=== PATIENT | male | born 1965 | race Caucasian/White ===

== ENCOUNTER 2024-06-16 08:31 | Emergency (ER) | payer BC, SELFPAY ==
[2024-06-16 08:33] VITALS: BP 178/100
--- NOTE | 2024-06-16 09:06 | ED.GENMED ---
History of Present Illness
General
Chief Complaint: Back Pain
Source: patient
Exam Limitations: none
Time Seen by Provider: 06/16/24 09:03
Nursing documentation reviewed up to this point in time: agreed with
History of Present Illness
History of Present Illness:
Patient is a 58-year-old male presents to the ER for evaluation of back pain. Patient reports for the past 1-2 weeks he has had some discomfort in his low back. He reports he did a long 20-hour drive to [place] and felt some discomfort during that
time and also stuck on a plane for hours. He reports this week on Monday and Monday he started to feel more discomfort in his left lower back which has become increasingly worse. He reports he is pulled his back out before and this seems very
similar. He had hydrocodone/acetaminophen at home along with Flexeril however that has not been working. In addition he has also been taking Aleve.
He denies any radiation of pain. Denies any numbness tingling weakness to lower extremities. He denies any bowel or bladder incontinence. He reports pain is in the left lower back region worse with movement.
Past History
Past History
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
Social History
Tobacco: Non-smoker
Personal:
Living: with family
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
Review of Systems
Review of Systems
Allergies reviewed?: Yes
All Other Systems: ROS reviewed and negative except as documented in HPI and ROS
Constitutional: Reports no symptoms; Denies fever
Cardiac: Reports no symptoms
ABD/GI: Reports no symptoms
: Reports no symptoms; Denies incontinence
Musculoskeletal: Reports back pain
Skin: Reports no symptoms
Neurological: Reports no symptoms
Phy Exam
General Physical Exam
General Presentation: no apparent distress
General age: appears stated age
General Skin: warm and dry
General Habitus: normal
General Mental: alert
General Hydration: appears well hydrated
Cardiovascular Exam
Cardiovascular Exam: regular rate/rhythm, no murmur and normal peripheral pulses
Pulmonary Exam
Pulmonary Exam: lungs clear and no respiratory distress
Neurological Exam
Neurological Exam: alert, oriented x3 and other (Intact sensation to bilateral lower extremities normal dorsiflexion plantarflexion normal bilateral patellar reflexes)
Musculoskeletal Exam
Musculoskeletal Exam: other (+ tenderness to left lower paralumbar region nml inspection )
Skin Exam
Skin Exam: normal color and warm/dry
Psychiatric Exam
Psychiatric Exam: normal mood/affect
Course
Orders/Labs/Results
Orders:
Orders
06/16/24 09:15
diazePAM [Valium Injection] 5 mg IM NOW STA
06/16/24 09:17
Ketorolac [Toradol] 30 mg IM NOW STA
06/16/24 09:19
Lidocaine [Lidocaine 4% Patch] 1 patch TOPICAL NOW STA
Apply Lidocaine patch(s) to:: left lower back
06/16/24 11:01
HYDROmorphone [Dilaudid] 1 mg IM NOW STA
Vital Signs
Initial and Last Documented VS:
Initial Vital Signs
Temp Pulse Resp BP Pulse Ox
98.4 F 72 18 178/100 98
06/16/24 08:33 06/16/24 08:33 06/16/24 08:33 06/16/24 08:33 06/16/24 08:33
Last Documented Vital Signs
Temp Pulse Resp BP Pulse Ox
98.4 F 72 18 142/86 94
06/16/24 08:33 06/16/24 08:33 06/16/24 08:33 06/16/24 11:28 06/16/24 11:30
MDM/Problems Addressed
Differential Diagnosis Includes:
not limited to: lumbar sprain/strain/muscle spasm
MDM/Problems Addressed:
Symptoms are consistent with muscle strain, spasm. Patient has had relief with Valium Toradol and did receive 1 injection of pain medication here in the ER he is ambulatory no neurological deficits no radiation of pain. Patient has a prescription
for hydrocodone/acetaminophen at home for arthritis he has tried this but this is not working for his back pain. Mild patient hold off on taking this medication as I did send a prescription for Valium to his pharmacy. I did educate patient and
on the risks of taking these medications together. He was instructed to stop taking his narcotic medicine and only Valium as needed with anti-inflammatory
*Pulse Oximetry
Patient hypoxic: no
*Critical Care Note
Total Time (30-74mins, 75-104mins- exclusive of procedures): Not Applicable
ED Attending Note
-
Portions of this chart may have been created with voice recognition software.� Occasional wrong word or��sound alike� substitutions may have occurred due to the inherent limitations of voice recognition software.
Discharge Plan
Departure
Patient Disposition: Home (Routine Discharge)
Date of Disposition: 06/16/24
Time of Disposition: 11:52
Patient with high blood pressure during this ER visit?: Yes
Condition: Fair
Covid-19: Not Applicable
Discharge Problem:
Muscle spasm
Instructions: Low Back Pain (DC), Muscle Spasm ED, BLOOD PRESSURE
Prescriptions:
New
diazepam [Valium] 5 mg tablet
5 mg PO TID PRN (Reason: muscle spasm) Qty: 10 0RF
No Action
prednisone 20 MG tablet
40 mg PO DAILY Qty: 8 0RF
Referrals:
Niraj Baldwin DO [Family Provider] -
Activity Restrictions/Additional Instructions:
As discussed, warm moist heat to affected area several times a day
Either Ibuprofen or Alleve as directed.
A prescription was sent to your pharmacy for Valium, take as directed .
No driving or drinking alcohol while on this medication. In addition do not take your narcotic medicine while taking this medicine.
Avoid lifting twisting turning bending however you may walk. Avoid prolonged positions.
Follow-up with family doctor in next several days for re-evaluation and return if any worsening of symptoms
Interventions
Interventions:
*Risk Screen - Suicide Last Done: 06/16/24 08:33
*General Assessment Last Done: 06/16/24 08:33
*Neglect/Abuse Screening Last Done: 06/16/24 08:33
ED- Fall Risk Assessment Last Done: 06/16/24 09:17
*ED COVID-19 Vaccine History Last Done: 06/16/24 09:16
ED-Musculoskeletal Assessment Last Done: 06/16/24 09:17
Discharge Date and Time
Print Language: MONTENEGRIN
[2024-06-16 09:16] VITALS: BMI 30.1
[2024-06-16] MEDS: VALIUM INJECTION 5 MG IM (09:21)
[2024-06-16] MEDS: TORADOL 30 MG IM (09:21)
[2024-06-16] MEDS: LIDOCAINE 4% PATCH 1 PATCH TOPICAL (09:23)
[2024-06-16] MEDS: DILAUDID 1 MG IM (11:25)
[2024-06-16 11:28] VITALS: BP 142/86
[2024-06-16 12:13] VITALS: BP 155/91
== END 2024-06-16 12:14 | disposition home or self-care (01) ==
LOC: EMR 08:31
PROVIDERS: EMERGENCY PHYSICIAN Emergency Medicine; FAMILY PHYSICIAN Family Medicine
DX: M62.838 Other muscle spasm (principal)
CPT/HCPCS: 99282; 96372

== ENCOUNTER 2024-06-17 06:56 | Emergency (ER) | payer BC, SELFPAY ==
[2024-06-17 06:57] VITALS: BP 184/105
[2024-06-17 07:23] VITALS: BMI 30.1
--- NOTE | 2024-06-17 07:32 | ED.GENMED ---
History of Present Illness
General
Chief Complaint: Back Pain
Time Seen by Provider: 06/17/24 07:32
History of Present Illness
History of Present Illness:
TIME OF INITIAL ENCOUNTER: 7:45 AM
HPI: The patient presents with nontraumatic pain at the back/hip. He was seen here yesterday related the pain in the back for the past 1 to 2 weeks�he has been taking Aleve and Flexeril which has not helped. He has Vicodin at home but has not
taken it. When he was seen here yesterday he was given a shot of Toradol, shot of Valium, and shot of Dilaudid. A prescription was sent for Valium to his pharmacy yesterday. Today however, the pain is more localized over the greater trochanteric
region. His brought up the possibility of bursitis.
EXAM:
GENERAL: Well appearing but in mild distress
HEENT: Moist oral mucosa
NEUROLOGIC: Excellent strength all extremities, no obvious coordination deficits
BACK: Negative straight leg raise on the left
PSYCHIATRIC: Appropriate mental status, normal insight and judgement
EXTREMITIES: There is some vague discomfort to palpation over the left greater trochanter, no edema, moves all extremities equally, no pain with passive range of motion into rotation at the left hip
SKIN: No rash, no lesions
NUMBER AND COMPLEXITY OF PROBLEMS ADDRESSED AT THE ENCOUNTER
� Chronic conditions affecting care: Had surgery on the aortic arch
� Acute Exacerbation and/or Progression of Chronic Illness: This is an acute problem
� Differential Diagnosis includes: Trochanteric bursitis, osteoarthritis, sciatica
AMOUNT AND/OR COMPLEXITY OF DATA TO BE REVIEWED AND ANALYZED
� I performed an independent evaluation of and my interpretation is:
EKG:
CT:
X-rays: X-rays personally reviewed and agree with radiologist interpretation that there is bilateral mild degenerative changes
Laboratory Studies:
Other:
� Review of other/old records: I reviewed the notes from yesterday's ED visit as summarized in the HPI
� Clinical information was obtained by an independent historian: I spoke to the at bedside
� Prescriptions/Medications Considered but not given:
� Further testing considered but not performed:
RISK OF COMPLICATIONS AND/OR MORBIDITY OR MORTALITY OF PATIENT MANAGEMENT
� Social determinants of health affecting care: Lives at home
� Discussion with other providers:
� Escalation of care including admission/observation vs risk of discharge considered: Based on location of pain, I favor more of a diagnosis of greater trochanteric bursitis as opposed to sciatica/back etiology. Will start
anti-inflammatory medicines including steroids.
ANY OTHER UPDATES:
9:05 AM: The patient was given Toradol and steroids. X-rays are relatively unremarkable.
9:15 AM: I reassessed the patient and he appears fairly comfortable. Blood pressure noted to be elevated and it appears he is noncompliant with his blood pressure medication. Will add steroids for short course as further treatment of trochanteric
bursitis. He says he could follow-up with Jennifer. We also talked about trying to use an [id number] lidocaine patch.
Past History
Past History
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
Social History
Tobacco: Non-smoker
Personal:
Living: with family
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
Phy Exam
Physical Exam
Physical Exam:
See HPI
Course
Orders/Labs/Results
Orders:
Orders
06/17/24 07:56
Ketorolac [Toradol] 30 mg IM NOW STA
Prednisone [Deltasone] 50 mg PO NOW STA
CR Hip - LT w/wo Pel 2-3 Vw* Urgent
Comment:
Reason For Exam: severe pain L lateral hip
Include a pelvis x-ray?: Yes
CR Lumbar Spine Comp Min 4 Vw* Urgent
Comment:
Reason For Exam: pain
Vital Signs
Initial and Last Documented VS:
Initial Vital Signs
Temp Pulse Resp BP Pulse Ox
98 F 65 16 184/105 98
06/17/24 06:57 06/17/24 06:57 06/17/24 06:57 06/17/24 06:57 06/17/24 06:57
Last Documented Vital Signs
Temp Pulse Resp BP Pulse Ox
98 F 65 16 161/94 98
06/17/24 06:57 06/17/24 06:57 06/17/24 06:57 06/17/24 08:20 06/17/24 06:57
*Critical Care Note
Total Time (30-74mins, 75-104mins- exclusive of procedures): Not Applicable
ED Attending Note
-
Portions of this chart may have been created with voice recognition software.� Occasional wrong word or��sound alike� substitutions may have occurred due to the inherent limitations of voice recognition software.
Discharge Plan
Departure
Patient Disposition: Home (Routine Discharge)
Date of Disposition: 06/17/24
Time of Disposition: 09:13
Patient with high blood pressure during this ER visit?: Yes
Discharge Problem:
Bursitis, trochanteric
Instructions: Bursitis (DC), BLOOD PRESSURE
Prescriptions:
New
prednisone 50 mg tablet
50 mg PO DAILY Qty: 4 0RF
No Action
diazepam [Valium] 5 mg tablet
5 mg PO TID PRN (Reason: muscle spasm) Qty: 10 0RF
A Little Brown Pill For Bp
1 tab PO DAILY
Patient Comments:
' when I remember'
naproxen sodium [Aleve] 220 mg Capsule
220 mg PO PRN PRN (Reason: pain)
Referrals:
Niraj Baldwin DO [Family Provider] -
Activity Restrictions/Additional Instructions:
X-ray showed mild degenerative changes to both hips but otherwise was relatively unremarkable. I suspect your symptoms are more related to trochanteric bursitis. I recommend you follow-up with Jennifer. Call their office for follow-up. I am
sending a prescription for prednisone to your pharmacy.
Interventions
Interventions:
*Risk Screen - Suicide Last Done: 06/17/24 07:00
*Neglect/Abuse Screening Last Done: 06/17/24 07:00
ED- Fall Risk Assessment Last Done: 06/17/24 07:31
*ED COVID-19 Vaccine History Last Done: 06/17/24 07:21
ED-Musculoskeletal Assessment Last Done: 06/17/24 07:31
Discharge Date and Time
Print Language: ANGOLAN
[2024-06-17] MEDS: TORADOL 30 MG IM (08:08)
[2024-06-17] MEDS: DELTASONE 50 MG PO (08:08)
[2024-06-17 08:20] VITALS: BP 161/94
== END 2024-06-17 09:24 | disposition home or self-care (01) ==
LOC: EMR 06:56
PROVIDERS: EMERGENCY PHYSICIAN Emergency Medicine; FAMILY PHYSICIAN Family Medicine
DX: M70.62 Trochanteric bursitis, left hip (principal); I10 Essential (primary) hypertension; Z91.148 Patient's other noncompliance with medication regimen for other reason
CPT/HCPCS: 96372; 99284; 72110; 73502

== ENCOUNTER 2024-10-29 14:02 | Emergency (ER) | payer BC, SELFPAY ==
[2024-10-29 14:04] VITALS: BP 168/100
[2024-10-29 14:21] VITALS: BMI 30.1
--- NOTE | 2024-10-29 14:41 | ED.GENMED ---
History of Present Illness
<Patricia Smalls PA-C - Last Filed: 10/30/24 15:13>
General
Chief Complaint: Skin Problem
Source: patient
Exam Limitations: none
Time Seen by Provider: 10/29/24 14:14
Nursing documentation reviewed up to this point in time: agreed with
History of Present Illness
History of Present Illness:
pt pino 59 y/o M
h/o aortic surgery
htn
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
says he started feeling swelling and some pain in his L posterior elbow about a week ago
he is presuming there is some foreign body in there but he isn't sure; he did not feel something cut his skin and he has had had any wounds there
but he noticed over the past few days that now the posterior elbow is warm and a little red and moderately swollen
he can still move the elbow but there is swelling and warmth in the forearm and uppe rarm as well
no fever/chills
no diabetes
no numbness/tingling/weakness
Past History
<HECTOR Patiño Last Filed: 10/30/24 15:13>
Past History
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
Social History
Tobacco: Non-smoker
Personal:
Living: with family
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
Review of Systems
<HECTOR Patiño Last Filed: 10/30/24 15:13>
Review of Systems
Allergies reviewed?: Yes
All Other Systems: Not applicable
Phy Exam
<HECTOR Patiño Last Filed: 10/30/24 15:13>
Physical Exam
Physical Exam:
GENERAL: Alert , in no apparent distress, comfortable at rest
HEAD: NCAT
CV: radial pulse 2+
NEUROLOGICAL: Alert and oriented, no focal neuro deficits, , 5/5 strength, sensation intact, ambulation slight limp right leg
SKIN: Warm and dry, olecranon area swelling, mild eryhtmea/warmth; no drainage, no wounds
erythematous macoulapapular rash to b/l forearms
no cellulitis
MUSCULOSKELETAL: L posterior elbow moderate swelling
full ROM of the elbow but with bursitis
and also warmth to the skin and some mild erythema extending prox forearm to distal upper arm (volar)
comaprtments sfot
PSYCH: Normal and appropriate interaction.
Course
<Patricia Smalls PA-C - Last Filed: 10/30/24 15:13>
Orders/Labs/Results
Orders:
Orders
10/29/24 14:07
CR Elbow - Left Min 3 Views Urgent
Comment:
Reason For Exam: possible FB, metal shard
10/29/24 15:11
CeFAZolin 2 GRAM [Ancef] 2 grams in 10 ml IV NOW
10/29/24 15:29
Body Fluid Cell Count Urgent
What is the Body Fluid: joint
Date Specimen was Collected: 10/29/24
Time Specimen was Collected: 15:08
Comment: n
Body Fluid Crystals Urgent
What is the Body Fluid: joint
Date Specimen was Collected: 10/29/24
Time Specimen was Collected: 15:08
CRP [C-Reactive Protein] Urgent
Complete Blood Count/With Diff Urgent
Comprehensive Metabolic Panel Urgent
ESR [Erythrocyte Sed Rate] Urgent
Lyme Progressive Urgent
Fluid Culture with Gram Stain Urgent
KENDRA Source: Joint Fluid
Specimen Description:
Date Specimen was Collected: 10/29/24
Time Specimen was Collected: 15:08
10/29/24 15:59
Vital Signs- Treatment ONCE
Frequency: ocne
Abnormal Lab Results
10/29/24
15:29
WBC 11.4 H 10^3/uL
(4.8-10.8)
MCH 31.2 H pg
(27.0-31.0)
Absolute Neuts (auto) 7.1 H 10^3/uL
(1.4-6.5)
Absolute Monos (auto) 1.2 H 10^3/uL
(0.1-0.6)
Monocytes % 10.7 H %
(1.7-9.3)
Sodium 134 L mmol/L
(135-145)
Glucose 102 H mg/dl
(70-99)
C-Reactive Protein 18.60 H mg/L
(0.0-10.00)
10/29/24 15:29
10/29/24 15:29
Vital Signs
Initial and Last Documented VS:
Initial Vital Signs
Temp Pulse Resp BP Pulse Ox
36.9 C 86 16 168/100 96
10/29/24 14:04 10/29/24 14:04 10/29/24 14:04 10/29/24 14:04 10/29/24 14:04
Last Documented Vital Signs
Temp Pulse Resp BP Pulse Ox
36.9 C 65 20 190/115 96
10/29/24 14:04 10/29/24 16:27 10/29/24 16:27 10/29/24 16:27 10/29/24 14:04
<Kam Alegre DO - Last Filed: 10/29/24 16:26>
Orders/Labs/Results
Orders:
Orders
10/29/24 14:07
CR Elbow - Left Min 3 Views Urgent
Comment:
Reason For Exam: possible FB, metal shard
10/29/24 15:11
CeFAZolin 2 GRAM [Ancef] 2 grams in 10 ml IV NOW
10/29/24 15:29
Body Fluid Cell Count Urgent
What is the Body Fluid: joint
Date Specimen was Collected: 10/29/24
Time Specimen was Collected: 15:08
Comment: n
Body Fluid Crystals Urgent
What is the Body Fluid: joint
Date Specimen was Collected: 10/29/24
Time Specimen was Collected: 15:08
CRP [C-Reactive Protein] Urgent
Complete Blood Count/With Diff Urgent
Comprehensive Metabolic Panel Urgent
ESR [Erythrocyte Sed Rate] Urgent
Lyme Progressive Urgent
Fluid Culture with Gram Stain Urgent
KENDRA Source: Joint Fluid
Specimen Description:
Date Specimen was Collected: 10/29/24
Time Specimen was Collected: 15:08
10/29/24 15:59
Vital Signs- Treatment ONCE
Frequency: ocne
Abnormal Lab Results
10/29/24
15:29
WBC 11.4 H 10^3/uL
(4.8-10.8)
MCH 31.2 H pg
(27.0-31.0)
Absolute Neuts (auto) 7.1 H 10^3/uL
(1.4-6.5)
Absolute Monos (auto) 1.2 H 10^3/uL
(0.1-0.6)
Monocytes % 10.7 H %
(1.7-9.3)
Sodium 134 L mmol/L
(135-145)
Glucose 102 H mg/dl
(70-99)
C-Reactive Protein 18.60 H mg/L
(0.0-10.00)
10/29/24 15:29
10/29/24 15:29
Vital Signs
Initial and Last Documented VS:
Initial Vital Signs
Temp Pulse Resp BP Pulse Ox
36.9 C 86 16 168/100 96
10/29/24 14:04 10/29/24 14:04 10/29/24 14:04 10/29/24 14:04 10/29/24 14:04
Last Documented Vital Signs
Temp Pulse Resp BP Pulse Ox
36.9 C 65 20 190/115 96
10/29/24 14:04 10/29/24 16:27 10/29/24 16:27 10/29/24 16:27 10/29/24 14:04
Procedures
<Patricia Smalls PA-C - Last Filed: 10/30/24 15:13>
Incision/Drainage/Joint Aspiration
Left Posterior Elbow:
Anethesia: 1% Lidocaine with Epi
Preparation: cleaned with Betadine
Type of procedure: incise
Nature of site: other (brusitis)
Description of abscess: greater than 3cm
How much fluid was obtained?: number in mls (6)
Fluid description: serosanguinous
Treatment: left open for drainage
<Patricia Smalls PA-C - Last Filed: 10/30/24 15:13>
MDM/Problems Addressed
Differential Diagnosis Includes:
bursitis, gout, fb
MDM/Problems Addressed:
59 y/o M
hypertension
here with L elbow pain/swelling/redness/warmth
satarted about 1-2 weeks ago
suspected he got something inside unde the skin but really has no memory of any wound or puncture
getting larger, more warm
no numbness/tingling/weakness
no fever
can range it but a little uncomfortable with full flexion
swelling soft tissue in the forearm proximaly and a little bit in the upper arm
nv intact
subtle erythema volar aspect of the heather medial aspect
pt's xray reviewed independently
no fb
but concerning edema suggestive of cellulitis
no gas
seen by ed attending
aspirated 6 ml fluid, hyellowish not purulent, maybe serosanguanous
will check labs and start abx
dr. britton from ortho aware, will arrange for close f/u with patietn in 1-2 days
empiric mrsa coverage with bactrim as well
<Patricia Smalls PA-C - Last Filed: 10/30/24 15:13>
*Critical Care Note
Total Time (30-74mins, 75-104mins- exclusive of procedures): Not Applicable
ED Attending Note
<Patricia Smalls PA-C - Last Filed: 10/30/24 15:13>
-
Portions of this chart may have been created with voice recognition software.� Occasional wrong word or��sound alike� substitutions may have occurred due to the inherent limitations of voice recognition software.
<Kam Alegre DO - Last Filed: 10/29/24 16:26>
ED Attending Note
Patient seen and examined by attending physician: Yes
I performed the substantive portion of visit, reviewed & personally made and approve the management plan that is documented in note by myself or YUE.: Yes
ED Attending Note:
Evaluated patient at bedside. The patient has erythema and warmth from the mid forearm to the mid arm of the left upper extremity. His range of motion is very good into flexion and extension. Minimal leukocytosis with mild CRP elevation with
normal sed rate. Ortho was notified. We gave a gram of Ancef here and we will also discharge on oral antibiotic with close outpatient follow-up with orthopedics. X-ray reviewed.
Discharge Plan
Departure
Patient Disposition: Home (Routine Discharge)
Date of Disposition: 10/29/24
Time of Disposition: 16:25
Patient with high blood pressure during this ER visit?: Yes
Condition: Fair
Discharge Problem:
Bursitis, olecranon, Cellulitis
Instructions: Cellulitis (Skin Infection), Adult (DC), Bursitis ED, BLOOD PRESSURE
Prescriptions:
New
sulfamethoxazole-trimethoprim [Bactrim DS] 800-160 mg tablet
1 tab PO BID Qty: 14 0RF
No Action
diazepam [Valium] 5 mg tablet
5 mg PO TID PRN (Reason: muscle spasm) Qty: 10 0RF
A Little Brown Pill For Bp
1 tab PO DAILY
Patient Comments:
' when I remember'
naproxen sodium [Aleve] 220 mg Capsule
220 mg PO PRN PRN (Reason: pain)
prednisone 50 mg tablet
50 mg PO DAILY Qty: 4 0RF
Referrals:
Anup Britton MD [Active] - Follow up in 2-3 days
Niraj Baldwin DO [Family Provider] -
Activity Restrictions/Additional Instructions:
Your arm looks like you have an infection in the skin called cellulitis probably from an olecranon bursitis, this is a fluid-filled sac of your elbow becoming infected. We gave you a dose of IV antibiotics. You can keep the elbow wrapped during
the day, take it off at night. Elevate is much as you can, warm compresses off-and-on. Watch for FEVER, worsening redness, swelling, numbness tingling in your forearm or fingertips, inability to bend your elbow, these are all concerns for an
emergency, return as needed. Otherwise please see the orthopedist within 1 to 2 days. He should be calling you. If you do not hear from them please call and tell them you are seen in the emergency department at [facility].
Your white blood cell count is just slightly high at 11.4. Sed rate is normal, C-reactive protein (another inflammatory marker is just slightly elevated at 18.6). We have placed you on antibiotics. Follow-up with Dr. Britton.
Interventions
Interventions:
*Risk Screen - Suicide Last Done: 10/29/24 14:21
*General Assessment Last Done: 10/29/24 14:21
*Neglect/Abuse Screening Last Done: 10/29/24 14:21
*ED- Fall Risk Assessment Last Done: 10/29/24 14:21
*ED COVID-19 Vaccine History Last Done: 10/29/24 14:21
*Nursing Disposition Last Done: 10/29/24 16:45
Discharge Date and Time
Discharge Date/Time: 10/29/24 16:45
Print Language: CITIZEN OF [place]
[2024-10-29 15:54] LABS: % Basophils 0.6 % (0-2); % Eosinophils 2.3 % (0-6); % Immature Granulocytes 0.3 % (0-0.5); % Lymphocytes 23.7 % (20.5-51.1); % Monocytes 10.7 % (1.7-9.3); % Neutrophils 62.4 % (42.2-75.2); Absolute Basophils 0.1 10^3/uL (0-0.2); Absolute Eosinophils 0.3 10^3/uL (0-0.7); Absolute Lymphocytes 2.7 10^3/uL (1.2-3.4); Absolute Monocytes 1.2 10^3/uL (0.1-0.6); Absolute Neutrophils 7.1 10^3/uL (1.4-6.5); Hemoglobin 14.8 g/dL (13.0-18.0); Mean Corp Hgb Conc. 34.4 g/dL (33.0-37.0); Mean Corpuscular Hgb 31.2 pg (27.0-31.0); Mean Corpuscular Volume 90.5 fL (80.0-94.0); Mean Platelet Volume 9.5 fL (7.4-10.4); Nucleated Red Blood Cells % 0 % (-); Platelet Count 160 10^3/uL (130-400); Red Blood Cell Count 4.75 10^6/uL (4.70-6.10); Red Cell Dist. Width 13.4 % (11.5-14.5); White Blood Cell Count 11.4 10^3/uL (4.8-10.8)
[2024-10-29 16:03] LABS: Body Fluid WBC 1929 /CUMM
[2024-10-29 16:04] LABS: Body Fluid Mononuclear 3.8 %; Body Fluid Polymorphonuclear 96.2 %
[2024-10-29 16:07] LABS: Erythrocyte Sed Rate 4 mm/hour (0-20)
[2024-10-29 16:08] LABS: Body Fluid Second Tech EYM
[2024-10-29 16:13] LABS: ALT (SGPT) 35 U/L (0-50); AST (SGOT) 23 U/L (17-59); Albumin 4.1 g/dl (3.5-5.0); Alkaline Phosphatase 56 U/L (38-126); Blood Urea Nitrogen 20 mg/dl (9-20); Calcium 9.4 mg/dl (8.4-10.2); Carbon Dioxide 25 mmol/L (22-30); Chloride 103 mmol/L (98-107); Estimated Creatinine Clearance > 125 ml/min; Glucose 102 mg/dl (70-99); Potassium 4.4 mmol/L (3.5-5.1); Sodium 134 mmol/L (135-145); Total Bilirubin 0.4 mg/dl (0.2-1.3); Total Protein 6.4 g/dl (6.3-8.2); eGFR > 60.00
[2024-10-29] MEDS: ANCEF 10 IV (16:18)
[2024-10-29 16:27] VITALS: BP 190/115
== END 2024-10-29 16:45 | disposition home or self-care (01) ==
LOC: EMR 14:02
PROVIDERS: Physician Assistant; EMERGENCY PHYSICIAN Emergency Medicine; FAMILY PHYSICIAN Family Medicine
DX: M70.22 Olecranon bursitis, left elbow (principal); L03.114 Cellulitis of left upper limb; R07.89 Other chest pain; I10 Essential (primary) hypertension; G89.29 Other chronic pain; Z79.899 Other long term (current) drug therapy
CPT/HCPCS: 99284; 20605; 96374; 73080; 80053; 85025; 85652; 86140; 86618; 87015; 87070; 87205; 89051; 89060